=== PATIENT | male | born 1970 | race Caucasian/White ===

== ENCOUNTER 2017-03-14 15:09 | Emergency (ER) | payer OTHER ==
[2017-03-14 15:14] VITALS: RESP 18
[2017-03-14] MEDS ORDERED: ONDANSETRON 4 MG/2 ML VIAL IVP STA (15:26)
[2017-03-14] MEDS ORDERED: MAG HYDROX/AL HYDROX/SIMETH 30 ML, HYOSCYAMINE ELIXIR 10 ML, CIMETIDINE HCL 300 MG, LID... PO STA ×4 (15:26)
--- NOTE | 2017-03-14 15:32 | ED ---
General Adult HPI - General Chief complaint: Abdominal Pain Stated complaint: Abd Pain Time Seen by Provider: 03/14/17 15:17 Source: patient, RN notes reviewed Mode of arrival: ambulatory Limitations: no limitations - History of Present Illness Initial comments: Patient 46-year-old male who presents emergency room today with a chief complaint of epigastric left upper quadrant pain. Patient does not that it started 4 days ago. States never had similar symptoms in the past. Does admit that when he drank milk and noticed that it seemed better. States was worse after has intraocular fluid. Patient denies any other complaints or associated symptoms. Patient denies any recent fever, chills, shortness of breath, chest pain, back pain, nausea or vomiting, numbness or tingling, dysuria or hematuria , constipation or diarrhea, headaches or visual changes, or any other complaints. - Related Data Home Medications Medication Instructions Recorded Confirmed Lurasidone HCl [Latuda] 120 mg PO HS 03/14/17 03/14/17 buPROPion HCL [Wellbutrin SR] 150 mg PO BID 03/14/17 03/14/17 busPIRone HCL 15 mg PO BID 03/14/17 03/14/17 Allergies Allergy/AdvReac Type Severity Reaction Status Date / Time No Known Allergies Allergy Verified 03/14/17 15:53 Review of Systems ROS Statement: Those systems with pertinent positive or pertinent negative responses have been documented in the HPI. ROS Other: All systems not noted in ROS Statement are negative. Past Medical History Additional Past Medical History / Comment(s): diverticulitis History of Any Multi-Drug Resistant Organisms: None Reported Additional Past Surgical History / Comment(s): right knee ACL repair Past Psychological History: Bipolar Smoking Status: Current every day smoker Past Alcohol Use History: None Reported Past Drug Use History: None Reported General Exam - General Exam Comments Initial Comments: General: The patient is awake and alert, in no distress, and does not appear acutely ill. Eye: Pupils are equal, round and reactive to light, extra-ocular movements are intact. No nystagmus. There is normal conjunctiva bilaterally. No signs of icterus. Ears, nose, mouth and throat: There are moist mucous membranes and no oral lesions. Neck: The neck is supple, there is no tenderness or JVD. Cardiovascular: There is a regular rate and rhythm. No murmur, rub or gallop is appreciated. Respiratory: Lungs are clear to auscultation, respirations are non-labored, breath sounds are equal. No wheezes, stridor, rales, or rhonchi. Gastrointestinal: Normal. 7. Normal bowel sounds. Abdomen soft on palpation. Patient does have tenderness in epigastric and mild tenderness in left upper quadrant. No rebound tenderness. No guarding. No CVA tenderness. Musculoskeletal: Normal ROM, no tenderness. Strength 5/5. Sensation intact. Pulses equal bilaterally 2+. Neurological: A&O x 3. CN II-XII intact, There are no obvious motor or sensory deficits. Coordination appears grossly intact. Speech is normal. Skin: Skin is warm and dry and no rashes or lesions are noted. Psychiatric: Cooperative, appropriate mood & affect, normal judgment. Limitations: no limitations Course Vital Signs 03/14/17 15:12 Temperature 97.3 F L Pulse Rate 110 H Respiratory 18 Rate Blood Pressure 123/82 O2 Sat by Pulse 97 Oximetry Medical Decision Making - Medical Decision Making Patient reexamined at this time shows no signs of distress. Patient's labs shows 13,000 white count mildly elevated lipase 351. Patient is resting comfortably in the stretcher. Shows no signs of distress. Abdomen was soft nontender at this time. WAS NEGATIVE FOR ANY EVIDENCE OF GALLSTONES. NEGATIVE RIGHT UPPER QUADRANT. PATIENT WILL BE DISCHARGED HOME. HE FEELS COMFORTABLE FOLLOWING UP WITH HIS HIS FAMILY DOCTOR THE NEXT 2 DAYS. ADVISED RETURN TO EMERGENCY ROOM IF ANY SYMPTOMS INCREASE OR WORSEN OR FOR ANY OTHER CONCERNS - Lab Data Result diagrams: 03/14/17 15:32 03/14/17 15:32 Lab Results 03/14/17 03/14/17 03/14/17 Range/Units 15:32 15:32 17:52 WBC 13.1 H (3.8-10.6) k/uL RBC 5.34 (4.30-5.90) m/uL Hgb 16.1 (13.0-17.5) gm/dL Hct 49.4 (39.0-53.0) % MCV 92.4 (80.0-100.0) fL MCH 30.1 (25.0-35.0) pg MCHC 32.6 (31.0-37.0) g/dL RDW 13.5 (11.5-15.5) % Plt Count 297 (150-450) k/uL Neutrophils % 72 % Lymphocytes % 22 % Monocytes % 2 % Eosinophils % 2 % Basophils % 1 % Neutrophils # 9.4 H (1.3-7.7) k/uL Lymphocytes # 2.9 (1.0-4.8) k/uL Monocytes # 0.3 (0-1.0) k/uL Eosinophils # 0.3 (0-0.7) k/uL Basophils # 0.1 (0-0.2) k/uL Sodium 139 (137-145) mmol/L Potassium 4.1 (3.5-5.1) mmol/L Chloride 109 H (98-107) mmol/L Carbon Dioxide 20 L (22-30) mmol/L Anion Gap 10 mmol/L BUN 14 (9-20) mg/dL Creatinine 1.20 (0.66-1.25) mg/dL Est GFR (MDRD) Af Amer >60 (>60 ml/min/1.73 sqM) Est GFR (MDRD) Non-Af >60 (>60 ml/min/1.73 sqM) Glucose 152 H (74-99) mg/dL Calcium 8.7 (8.4-10.2) mg/dL Total Bilirubin 0.4 (0.2-1.3) mg/dL AST 26 (17-59) U/L ALT 30 (21-72) U/L Alkaline Phosphatase 41 (38-126) U/L Total Protein 5.8 L (6.3-8.2) g/dL Albumin 3.4 L (3.5-5.0) g/dL Amylase 75 (30-110) U/L Lipase 351 H (23-300) U/L Urine Color Yellow Urine Appearance Clear (Clear) Urine pH 5.5 (5.0-8.0) Ur Specific [place] 1.023 (1.001-1.035) Urine Protein Negative (Negative) Urine Glucose (UA) Negative (Negative) Urine Ketones Negative (Negative) Urine Blood Negative (Negative) Urine Nitrite Negative (Negative) Urine Bilirubin Negative (Negative) Urine Urobilinogen 2.0 (<2.0) mg/dL Ur Leukocyte Esterase Negative (Negative) Disposition Clinical Impression: Abdominal pain Disposition: HOME SELF-CARE Condition: Good Instructions: Abdominal Pain (ED) Additional Instructions: Please follow-up with family doctor in the next 2 days of symptoms have not improved. Please return to emergency room if the symptoms increase or worsen or for any other concerns. Referrals: Nonstaff,Physician [Primary Care Provider] - 1-2 days Time of Disposition: 18:16
[2017-03-14 15:45] LABS: Basophils # (A) 0.1 k/uL (0-0.2); Basophils % (A) 1 %; CH 31.6; CHCM 34.3; Eosinophils # (A) 0.3 k/uL (0-0.7); Eosinophils % (A) 2 %; HCT 49.4 % (39.0-53.0); HDW 2.34; HGB 16.1 gm/dL (13.0-17.5); Luc # (Auto) 0.13; Luc % (Auto) 1; Lymphocytes # (A) 2.9 k/uL (1.0-4.8); Lymphocytes % (A) 22 %; MCH 30.1 pg (25.0-35.0); MCHC 32.6 g/dL (31.0-37.0); MCV 92.4 fL (80.0-100.0); Mean Platelet Volume 7.5; Monocytes # (A) 0.3 k/uL (0-1.0); Monocytes % (A) 2 %; Neutrophils # (A) 9.4 k/uL (1.3-7.7); Neutrophils % (A) 72 %; RBC 5.34 m/uL (4.30-5.90); RDW 13.5 % (11.5-15.5); WBC 13.1 k/uL (3.8-10.6); WBC (Perox) 12.62
--- NOTE | 2017-03-14 15:51 | XR ---
EXAMINATION TYPE: XR KUB DATE OF EXAM: 03/14/2017 CLINICAL HISTORY: Upper abdominal pain with history of diverticulitis. TECHNIQUE: Single supine KUB image of the abdomen is obtained. COMPARISON: None. FINDINGS: Scattered gas is seen in non-distended small bowel loops. Gas and fecal material is seen in non-distended colon. There is no visceromegaly, pneumoperitoneum, or abnormal calcification appr eciated. The lung bases are clear and the osseous structures are intact. Degenerative changes are se en of the lumbosacral spine and femoral acetabular joints. IMPRESSION: Nonobstructive bowel gas pattern.
[2017-03-14 15:55] LABS: ALT 30 U/L (21-72); AST 26 U/L (17-59); Alkaline Phosphatase 41 U/L (38-126); Amylase 75 U/L (30-110); Anion Gap 10 mmol/L; Blood Urea Nitrogen 14 mg/dL (9-20); Calcium 8.7 mg/dL (8.4-10.2); Carbon Dioxide 20 mmol/L (22-30); Chloride 109 mmol/L (98-107); Glucose 152 mg/dL (74-99); Non-African American GFR(MDRD) >60 (>60 ml/min/1.73 sqM); Potassium 4.1 mmol/L (3.5-5.1); Sodium 139 mmol/L (137-145); Total Bilirubin 0.4 mg/dL (0.2-1.3); Total Protein 5.8 g/dL (6.3-8.2)
--- NOTE | 2017-03-14 17:18 | US ---
EXAMINATION TYPE: US abdomen limited DATE OF EXAM: 03/14/2017 COMPARISON: NONE CLINICAL HISTORY: Pain. EXAM MEASUREMENTS: Liver Length: 17.1 cm Gallbladder Wall: 0.2 cm CBD: 0.4 cm Right Kidney: 10.5 x 4.3 x 4.9 cm Pancreas: Obscured by bowel gas Liver: wnl Gallbladder: wnl Evidence for sonographic Galeana's sign: No CBD: wnl Right Kidney: No hydronephrosis or masses seen IMPRESSION: Negative right upper quadrant abdominal sonogram. No gallstones or dilated ducts.
[2017-03-14 18:05] LABS: Appearance,Urine Clear (Clear); Bilirubin,Urine Negative (Negative); Glucose,Urine (UA) Negative (Negative); Ketones,Urine Negative (Negative); Leukocyte Esterase,Urine Negative (Negative); Nitrite,Urine Negative (Negative); PH, Urine 5.5 (5.0-8.0); Protein,Urine Negative (Negative); Specific Gravity,Urine 1.023 (1.001-1.035); UA Billing (MACRO vs. MICRO) CHEM
[2017-03-14 18:23] VITALS: BP 125/78; PULSE 81; TEMP 97.1
== END 2017-03-14 18:30 | disposition home or self-care (01) ==
LOC: EC 15:09
DX: R10.13 Epigastric pain (principal); R10.12 Left upper quadrant pain; R74.8 Abnormal levels of other serum enzymes; F31.9 Bipolar disorder, unspecified; F17.200 Nicotine dependence, unspecified, uncomplicated; Z79.899 Other long term (current) drug therapy
CPT/HCPCS: 36415; 80053; 82150; 83690; 85025; 81003; 74000; 76705; 99284; 96374; J2405

== ENCOUNTER 2018-08-22 10:45 | Emergency (ER) | payer OTHER ==
[2018-08-22] MEDS ORDERED: MORPHINE SULFATE 4 MG/ML SYRINGE IV STA (11:29)
[2018-08-22] MEDS ORDERED: TERBUTALINE 1 MG/ML VIAL SQ STA ×2 (11:32→12:25)
[2018-08-22 11:57] LABS: Basophils # (A) 0.1 k/uL (0-0.2); Basophils % (A) 1 %; Eosinophils # (A) 0.1 k/uL (0-0.7); Eosinophils % (A) 2 %; HCT 42.6 % (39.0-53.0); Lymphocytes # (A) 1.5 k/uL (1.0-4.8); Lymphocytes % (A) 23 %; MCH 29.5 pg (25.0-35.0); MCHC 32.9 g/dL (31.0-37.0); MCV 89.6 fL (80.0-100.0); Mean Platelet Volume 6.5; Monocytes # (A) 0.4 k/uL (0-1.0); Monocytes % (A) 6 %; Neutrophils # (A) 4.4 k/uL (1.3-7.7); Neutrophils % (A) 66 %; Platelet Count 268 k/uL (150-450); RBC 4.75 m/uL (4.30-5.90); RDW 13.6 % (11.5-15.5); WBC 6.6 k/uL (3.8-10.6)
[2018-08-22 12:00] LABS: Anion Gap 10 mmol/L; Blood Urea Nitrogen 11 mg/dL (9-20); Calcium 9.3 mg/dL (8.4-10.2); Carbon Dioxide 20 mmol/L (22-30); Chloride 109 mmol/L (98-107); Glucose 95 mg/dL (74-99); Potassium 4.6 mmol/L (3.5-5.1); Sodium 139 mmol/L (137-145)
--- NOTE | 2018-08-22 12:08 | ED ---
General Adult HPI - General Source: patient, RN notes reviewed Mode of arrival: ambulatory Limitations: no limitations <Jean Abbott - Last Filed: 08/22/18 14:37> <Jose Rafael Stubbs - Last Filed: 08/22/18 14:59> - General Chief complaint: Urogenital Stated complaint: priapism Time Seen by Provider: 08/22/18 11:09 - History of Present Illness Initial comments: Patient 48-year-old male presenting to the emergency room today with chief complaint of priapism. Patient does admit that he's had this once in the past after taking trazodone. States last night he takes Zoloft. He woke up this morning approximately 8 AM. States that he's had an erection since. Patient does admit to pain locally. He denies any other complaints or symptoms. Patient denies any recent fever, chills, shortness of breath, chest pain, back pain, abdominal pain, nausea or vomiting, numbness or tingling, dysuria or hematuria, nheadaches or visual changes, or any other complaints. (Jean Abbott) - Related Data Home Medications Medication Instructions Recorded Confirmed Ibuprofen [Motrin Ib] 400 mg PO Q6H PRN 08/22/18 08/22/18 Allergies Allergy/AdvReac Type Severity Reaction Status Date / Time No Known Allergies Allergy Verified 08/22/18 11:43 Review of Systems ROS Other: All systems not noted in ROS Statement are negative. <Jean Abbott - Last Filed: 08/22/18 14:37> ROS Other: All systems not noted in ROS Statement are negative. <Jose Rafael Stubbs - Last Filed: 08/22/18 14:59> ROS Statement: Those systems with pertinent positive or pertinent negative responses have been documented in the HPI. Past Medical History Additional Past Medical History / Comment(s): diverticulitis History of Any Multi-Drug Resistant Organisms: None Reported Additional Past Surgical History / Comment(s): right knee ACL repair Past Psychological History: Bipolar Smoking Status: Current every day smoker Past Alcohol Use History: Daily Past Drug Use History: None Reported <Jean Abbott - Last Filed: 08/22/18 14:37> General Exam Limitations: no limitations <Jean Abbott - Last Filed: 08/22/18 14:37> <Jose Rafael Stubbs - Last Filed: 08/22/18 14:59> - General Exam Comments Initial Comments: General: The patient is awake and alert, in no distress, and does not appear acutely ill. . Gastrointestinal: Soft nontender. Musculoskeletal: Normal ROM, no tenderness. Neurological: A&O x 3. CN II-XII intact, There are no obvious motor or sensory deficits. Coordination appears grossly intact. Speech is normal. Skin: Skin is warm and dry and no rashes or lesions are noted. Psychiatric: Cooperative, appropriate mood & affect, normal judgment. : Circumcised male. Patient does have a erection. There is no skin color change. (Jean Abbott) Vital Signs 08/22/18 08/22/18 11:03 14:17 Temperature 97.9 F Pulse Rate 108 H 89 Respiratory 18 16 Rate Blood Pressure 162/79 133/96 O2 Sat by Pulse 97 98 Oximetry Procedures - Penile Procedure Consent Obtained: verbal consent Indication: other (Priapism) Procedural Sedation: No Sedation/Analgesia: opioids Local Anesthesia Used: Lidocaine 1% without EPI Amount of Anesthesia Used (mLs): 3 Priapism Management: aspiration, phenylephrine injection Complications: none Patient Tolerated Procedure: well <Jose Rafael Stubbs - Last Filed: 08/22/18 14:59> Medical Decision Making - Lab Data Result diagrams: 08/22/18 11:36 08/22/18 11:36 <Jean Abbott - Last Filed: 08/22/18 14:37> - Lab Data Result diagrams: 08/22/18 11:36 08/22/18 11:36 <Jose Rafael Stubbs - Last Filed: 08/22/18 14:59> - Medical Decision Making Patient reexamined at this time shows no signs of distress. Patient labs were reviewed are unremarkable. Patient physical exam consistent with priapism. Patient was given pain medication along with subcutaneous terbutaline 2 and area was packed in ice. This had little relief of the symptoms. Attending physician Dr. Stubbs did anesthetized at the base of penis was able to drain approximately 30-40 mL bilaterally. Phenylephrine was injected locally. At this time patient's symptoms have resolved. Patient is advised to discontinue Zoloft as he took this last night. He is advised to follow-up with urologist. Advised return for any other concerns. (Jean Abbott) 48-year-old male with priapism, this is medication, troponin 2, no, I did withdraw to 30-40 mL of bright bilateral radiating checked and micrograms of phenylephrine bilaterally. Patient has complete resolution Priapism, no complications. He will monitor for signs of infection, return with worsening or changing symptoms, close follow-up with urology. I did discuss the case with Dr. Reed, this patient as an outpatient (Jose Rafael Stubbs) - Lab Data Lab Results 08/22/18 08/22/18 Range/Units 11:36 11:36 WBC 6.6 (3.8-10.6) k/uL RBC 4.75 (4.30-5.90) m/uL Hgb 14.0 (13.0-17.5) gm/dL Hct 42.6 (39.0-53.0) % MCV 89.6 (80.0-100.0) fL MCH 29.5 (25.0-35.0) pg MCHC 32.9 (31.0-37.0) g/dL RDW 13.6 (11.5-15.5) % Plt Count 268 (150-450) k/uL Neutrophils % 66 % Lymphocytes % 23 % Monocytes % 6 % Eosinophils % 2 % Basophils % 1 % Neutrophils # 4.4 (1.3-7.7) k/uL Lymphocytes # 1.5 (1.0-4.8) k/uL Monocytes # 0.4 (0-1.0) k/uL Eosinophils # 0.1 (0-0.7) k/uL Basophils # 0.1 (0-0.2) k/uL Sodium 139 (137-145) mmol/L Potassium 4.6 (3.5-5.1) mmol/L Chloride 109 H (98-107) mmol/L Carbon Dioxide 20 L (22-30) mmol/L Anion Gap 10 mmol/L BUN 11 (9-20) mg/dL Creatinine 1.00 (0.66-1.25) mg/dL Est GFR (CKD-EPI)AfAm >90 (>60 ml/min/1.73 sqM) Est GFR (CKD-EPI)NonAf 88 (>60 ml/min/1.73 sqM) Glucose 95 (74-99) mg/dL Calcium 9.3 (8.4-10.2) mg/dL Disposition Is patient prescribed a controlled substance at d/c from ED?: No Time of Disposition: 14:38 <Jean Abbott - Last Filed: 08/22/18 14:37> <Jose Rafael Stubbs - Last Filed: 08/22/18 14:59> Clinical Impression: Priapism Disposition: HOME SELF-CARE Condition: Good Instructions (If sedation given, give patient instructions): Priapism (ED) Additional Instructions: Please follow-up the urologist over the next 2 days. Please return here to emergency room for any other concerns. Referrals: Katrina Valentino MD [Primary Care Provider] - 1-2 days Gelacio Reed MD [STAFF PHYSICIAN] - 1-2 days
[2018-08-22] MEDS ORDERED: SODIUM CHLORIDE 0.9% 1,000 ML IV STA (12:52)
[2018-08-22] MEDS ORDERED: PHENYLEPHRINE 10 MG/ML VIAL SQ PRN (12:56)
[2018-08-22] MEDS ORDERED: PHENYLEPHRINE INTRA-CAVE PRN (13:00)
[2018-08-22] MEDS ORDERED: NACL SYG INTRA-CAVE PRN (13:00)
[2018-08-22] MEDS ORDERED: MORPHINE SULFATE 4 MG/ML SYRINGE IVP STA (13:06)
[2018-08-22] MEDS ORDERED: LIDOCAINE 1% INJ 10MG/ML (20 ML MDV) SQ STA (13:36)
[2018-08-22 14:17] VITALS: BP 133/96; PULSE 89; RESP 16
[2018-08-22 14:45] VITALS: TEMP 98.2
== END 2018-08-22 14:45 | disposition home or self-care (01) ==
LOC: EC 10:45
DX: N48.30 Priapism, unspecified (principal); F17.200 Nicotine dependence, unspecified, uncomplicated
CPT/HCPCS: 99284; 54220; 96374; 96376; 96361 ×2; 36415; 80048; 85025; J2270; J3105; J2001

== ENCOUNTER → 2019-02-23 | Outpatient (CLI) | payer OTHER ==
--- NOTE | 2019-02-23 15:03 | EST ---
Stress Test Results/Findings: Exam Performed: stress test Exam Date: 02/23/19 Reason for Exam: CHEST PAIN / ABN EKG Height: 6 ft 2 in Weight: 92.986 kg Protocol: MELINA Stage: 3 Duration of Exercise: 6:45 Resting Heart Rate: 91 Resting Blood Pressure: 144/94 Maximum Achieved Heart Rate: 153 Maximum Achieved Blood Pressure: 211/88 85% PMHR: 145 100% PMHR: 171 METS: 8.1 Technologist Comment: Stress Test Results/Findings: Baseline heart rate 91 beats a minute, Baseline blood pressure 144/94 mmHg Baseline 12 ECG showed normal sinus rhythm with normal cardiac intervals in complete bundle branch block pattern Patient exercised on a Melina protocol. He for 6 was 45 seconds. He was very short of breath with exercise and was struggling Blood pressure 211/88 mmHg No issues for ischemia no arrhythmias noted Impression patient became very short of breath with very average exertion at a low workload level Hypertensive response to exercise No ECG abnormalities noted at this workload level Additional CC's: Fredrick CEDEÑO
== END | disposition home or self-care (01) ==
LOC: RADNMMAIN 08:16
PROVIDERS: ATTEND Internal Medicine
DX: R06.02 Shortness of breath (principal); I10 Essential (primary) hypertension
CPT/HCPCS: 93017

== ENCOUNTER 2020-05-30 05:13 | Emergency (ER) | payer OTHER ==
--- NOTE | 2020-05-30 05:30 | ED ---
Chest Pain HPI - General Stated Complaint: Pain Time Seen by Provider: 05/30/20 05:15 Source: patient, EMS Mode of arrival: EMS Limitations: no limitations - History of Present Illness Initial Comments: this patient is a 49-year-old man who presents to be evaluated for left-sided chest pain that come on over the course of tonight. The patient states that about 6 weeks ago he did fall and he believes he had some rib fractures but they were on the right side. He is concerned because now he is having pain on the left. Patient denies any newtrauma. He has not had any anginal type symptoms, no dyspnea, diaphoresis, nausea or vomiting, no palpitations lightheadedness or syncope. MD Complaint: chest pain -: hour(s) Onset: during rest Pain Location: left chest Pain Radiation: none Severity: moderate Quality: other (like a cramp) Consistency: constant Improves With: nothing Worsens With: nothing Treatments Prior to Arrival: none - Related Data Home Medications Medication Instructions Recorded Confirmed Ibuprofen [Motrin] 800 mg PO Q8H PRN 05/30/20 05/30/20 LORazepam [Ativan] 0.5 mg PO DAILY PRN 05/30/20 05/30/20 Previous Rx's Medication Instructions Recorded Ibuprofen 800 mg PO TID #20 tablet 05/30/20 Allergies Allergy/AdvReac Type Severity Reaction Status Date / Time No Known Allergies Allergy Verified 05/30/20 07:18 Review of Systems ROS Statement: Those systems with pertinent positive or pertinent negative responses have been documented in the HPI. ROS Other: All systems not noted in ROS Statement are negative. Constitutional: Denies: fever, chills Respiratory: Denies: cough, dyspnea Cardiovascular: Reports: as per HPI, chest pain. Denies: palpitations, orthopnea, edema Gastrointestinal: Denies: abdominal pain, nausea, vomiting Genitourinary: Denies: dysuria, hematuria Musculoskeletal: Denies: back pain Skin: Denies: rash Neurological: Denies: headache EKG Findings - EKG Results: EKG: interpreted by FIGUEROA SHUKLA, sinus rhythm (rate 83 bpm), normal axis, normal QRS, normal ST/T, no acute changes Past Medical History Additional Past Medical History / Comment(s): diverticulitis History of Any Multi-Drug Resistant Organisms: None Reported Additional Past Surgical History / Comment(s): right knee ACL repair Past Psychological History: Bipolar Smoking Status: Current every day smoker Past Alcohol Use History: Daily Past Drug Use History: None Reported General Exam Limitations: no limitations General appearance: alert, in no apparent distress Head exam: Present: atraumatic, normocephalic Eye exam: Present: normal appearance. Absent: scleral icterus, conjunctival injection ENT exam: Present: mucous membranes dry Neck exam: Present: normal inspection Respiratory exam: Present: normal lung sounds bilaterally. Absent: respiratory distress, wheezes, rales, rhonchi, stridor, chest wall tenderness, accessory muscle use Cardiovascular Exam: Present: regular rate, normal rhythm, normal heart sounds. Absent: systolic murmur, diastolic murmur, rubs, gallop GI/Abdominal exam: Present: soft. Absent: distended, tenderness, guarding, rebound, rigid, mass, pulsatile mass, hernia Extremities exam: Present: normal inspection, normal capillary refill. Absent: pedal edema, calf tenderness Back exam: Present: normal inspection. Absent: CVA tenderness (R), CVA tenderness (L) Neurological exam: Present: alert Skin exam: Present: warm, dry, intact, normal color. Absent: rash Course Vital Signs 05/30/20 05/30/20 05:16 07:31 Temperature 97.7 F 97.8 F Pulse Rate 82 83 Respiratory 17 18 Rate Blood Pressure 144/93 141/98 O2 Sat by Pulse 97 98 Oximetry Disposition Clinical Impression: Alcoholic intoxication, Chest wall injury, Lung mass Disposition: HOME SELF-CARE Condition: Fair Instructions (If sedation given, give patient instructions): Chest Pain (ED) Additional Instructions: s we discussed, you must follow-up with the market consultant to have further evaluation of the 2 cm right lung mass that was visualized on the CAT scan. This is concerning for possible cancer, do not delay having further evaluation Prescriptions: Ibuprofen 800 mg PO TID #20 tablet Is patient prescribed a controlled substance at d/c from ED?: No Referrals: Fredrick Barnes MD [Primary Care Provider] - 1-2 days Jose Rafael Demarco DO [Doctor of Osteopathic Medicine] - 1-2 days
--- NOTE | 2020-05-30 05:55 | XR ---
EXAM: XR Chest, 2 Views CLINICAL HISTORY: ITS.REASON XR Reason: Chest Pain TECHNIQUE: Frontal and lateral views of the chest. COMPARISON: No relevant prior studies available. FINDINGS: Lungs: Patchy lung opacities, possible atelectasis or developing infiltrate. Pleural space: No significant pleural effusion or pneumothorax. Heart: Unremarkable. Mediastinum: Unremarkable. Bones/joints: Query right rib irregularities. IMPRESSION: 1. Patchy lung opacities, possible atelectasis or developing infiltrate. 2. Query right rib irregularities. Correlate with history of trauma.
[2020-05-30 06:00] LABS: Basophils # (A) 0.1 k/uL (0-0.2); Basophils % (A) 1 %; Eosinophils # (A) 0.1 k/uL (0-0.7); Eosinophils % (A) 1 %; HCT 45.4 % (39.0-53.0); HGB 15.6 gm/dL (13.0-17.5); Lymphocytes # (A) 3.5 k/uL (1.0-4.8); Lymphocytes % (A) 46 %; MCH 30.9 pg (25.0-35.0); MCHC 34.3 g/dL (31.0-37.0); Mean Platelet Volume 6.9; Monocytes # (A) 0.3 k/uL (0-1.0); Monocytes % (A) 4 %; Neutrophils # (A) 3.4 k/uL (1.3-7.7); Neutrophils % (A) 45 %; Platelet Count 255 k/uL (150-450); RBC 5.05 m/uL (4.30-5.90); RDW 13.2 % (11.5-15.5); WBC 7.6 k/uL (3.8-10.6)
[2020-05-30 06:19] LABS: INR 0.9 (<1.2); Partial Thromboplastin Time 23.8 sec (22.0-30.0); Prothrombin Time 9.6 sec (9.0-12.0)
[2020-05-30 06:23] LABS: ALT 20 U/L (4-49); AST 43 U/L (17-59); African American GFR (CKD) >90 (>60 ml/min/1.73 sqM); Albumin 4.1 g/dL (3.5-5.0); Alkaline Phosphatase 73 U/L (38-126); Amylase 54 U/L (30-110); Anion Gap 9 mmol/L; Blood Urea Nitrogen 15 mg/dL (9-20); Calcium 8.5 mg/dL (8.4-10.2); Carbon Dioxide 25 mmol/L (22-30); Chloride 112 mmol/L (98-107); Glucose 99 mg/dL (74-99); Lipase 170 U/L (23-300); Magnesium 1.9 mg/dL (1.6-2.3); Non-African American GFR(CKD) 84 (>60 ml/min/1.73 sqM); Potassium 4.7 mmol/L (3.5-5.1); Sodium 146 mmol/L (137-145); Total Bilirubin 0.7 mg/dL (0.2-1.3); Total Protein 7.2 g/dL (6.3-8.2)
[2020-05-30 06:24] LABS: D-Dimer 1.82 mg/L FEU (<0.60)
[2020-05-30 06:34] LABS: Alcohol 351 mg/dL
[2020-05-30 07:32] VITALS: BP 141/98; PULSE 83; RESP 18; TEMP 97.8
[2020-05-30] MEDS ORDERED: MORPHINE SULFATE 4 MG/ML SYRINGE IV STA (07:34)
--- NOTE | 2020-05-30 07:55 | CT ---
EXAMINATION TYPE: CT chest angio for PE DATE OF EXAM: 05/30/2020 COMPARISON: Radiograph same day HISTORY: 49-year-old male shortness of breath, Possible PE TECHNIQUE: Contiguous axial scanning of the chest performed with IV Contrast, patient injected with 1 00 ml mL of Isovue 370. Coronal/sagittal MIP reconstructions performed. CT DLP: 342.3 mGycm Automated exposure control for dose reduction was used. FINDINGS: Heart normal size without pericardial effusion. No flattening of the interventricular septum. There i s some reflux of contrast into the hepatic IVC and minimally into the hepatic veins. Aortic root mildly aneurysmal at 4.2 cm. Conventional arch vessel branching anatomy. Satisfactory opacification of the pulmonary arterial system but with scattered breathing motion artif act. Unable to exclude segmental branch embolus to the right lower lobe, axial image 81 and 82 and to the left upper lobe, axial images 38, 39, 40, 41, and 44. Again, assessment is motion degraded. There is enlarged 1.6 x 1.2 cm right hilar lymph node. Otherwise, no thoracic lymphadenopathy. Mild diffuse bronchial wall thickening. No consolidation or pleural effusion. 2.0 cm pulmonary nodule at the peripheral right base. Visualized upper abdomen shows a tiny hiatal hernia. Bones: Fractures of the right posterior sixth through eighth ribs. These appear more subacute, possib ly chronic ununited and should be correlated clinically. Mild degenerative disc disease midthoracic s pine. IMPRESSION: 1. PATIENT WAS BREATHING DURING THE SCAN. THIS DEGRADES ASSESSMENT FOR PULMONARY EMBOLI. UNABLE TO EX CLUDE A FEW SEGMENTAL BRANCH EMBOLI TO THE RIGHT LOWER LOBE (AXIAL IMAGE 81 AND 82) AND LEFT UPPER LO BE (AXIAL IMAGES 38-41 AND 44). 2. REFERRAL TO PULMONARY MEDICINE RECOMMENDED FOR WORKUP OF POSSIBLE 2.0 CM RIGHT LOWER LOBE NEOPLASM AND ENLARGED 1.6 X 1.2 CM RIGHT HILAR LYMPH NODE. PET/CT CAN BE PERFORMED. 3. FRACTURES OF THE RIGHT POSTERIOR SIXTH THROUGH EIGHTH RIBS APPEAR MORE SUBACUTE, POSSIBLY CHRONIC AND UNUNITED. CORRELATE CLINICALLY.
== END 2020-05-30 08:40 | disposition home or self-care (01) ==
LOC: EC 05:13
DX: F10.129 Alcohol abuse with intoxication, unspecified (principal); R91.8 Other nonspecific abnormal finding of lung field; S29.9XXA Unspecified injury of thorax, initial encounter; F17.200 Nicotine dependence, unspecified, uncomplicated; F31.9 Bipolar disorder, unspecified; X58.XXXA Exposure to other specified factors, initial encounter; Z87.81 Personal history of (healed) traumatic fracture
CPT/HCPCS: 36415; 93005; 85379; 80053; 82150; 83690; 83735; 84484; 85025; 85610; 85730; 71046; 71275; 99285; 96374; G0480; J2270; Q9967; 80320

== ENCOUNTER → 2020-06-07 | Outpatient (CLI) | payer OTHER ==
--- NOTE | 2020-06-10 10:24 | PE ---
EXAMINATION TYPE: PET CT fusion skull to thigh DATE OF EXAM: 06/07/2020 COMPARISON: CTA chest 8 days ago. HISTORY: Solitary pulmonary nodule. Abnormal CT. TECHNIQUE: Following the intravenous administration of 12.86 mCi of F-18 FDG, whole body images are performed from the skull base to the midthigh. Images are reviewed on the computer in the coronal, a xial, and sagittal planes. Reconstructed rotating images are created on independent workstation and reviewed on the computer. A noncontrast CT is performed in conjunction with the PET scan. SCAN: Initial Scan FINDINGS: SKULL BASE AND NECK: No areas of suspicious hypermetabolic uptake. CHEST, MEDIASTINUM, AND HILAR REGION: 3 motion artifact degradation. Redemonstration of stable 1.9 x 1.6 cm peripheral right lower lobe nodule axial image 121, nodule noted ametabolic. Less well-seen an terior inferior right hilar lymph node near axial image 108 does not show suspicious hypermetabolic u ptake. Remainder of thorax shows no suspicious hypermetabolic uptake. ABDOMEN AND PELVIS: No areas of suspicious hypermetabolic uptake. No adrenal masses. Normal excretion . OSSEOUS STRUCTURES: Mild hypermetabolic uptake corresponds to suspected healing fractures of the post erior lateral right sixth through eighth ribs. Mild hypermetabolic uptake lateral left eighth rib cor responds to subtle nondisplaced acute fracture on recent CT in retrospect. OTHER CT: Mild/moderate calcified plaque bilateral carotid bulb level. Dependent fluid in the left ma xillary sinus, correlate clinically. Ascending aorta measures up to 3.9 cm in diameter axial image 97. Small degree of subareolar flame-sh aped gynecomastia bilaterally. Liver is low dense consistent with diffuse fatty infiltration. A few scattered tiny pelvic phlebolith s. Underlying scoliotic curvature. Multilevel spurring in the spine. IMPRESSION: No suspicious hypermetabolic uptake to suggest malignancy. Slow-growing neoplasm such as COTTRELL not entirely excluded. Consider sampling or short-term imaging monitored during to document stab ility.
== END | disposition home or self-care (01) ==
LOC: RADPETMAIN 09:11
PROVIDERS: ATTEND Internal Medicine Critical Care Medicine
DX: R91.8 Other nonspecific abnormal finding of lung field (principal)
CPT/HCPCS: 78815; A9552